=== PATIENT | male | born 1980 | race Caucasian/White ===

== ENCOUNTER 2019-02-19 11:51 | Emergency (ER) | payer OTHER ==
[~2019-02-19] VITALS: Ht 160 cm; Wt 90.7 kg
[2019-02-19 11:55] VITALS: BP_SYST 152
--- NOTE | 2019-02-19 11:57 | NUR ---
Patient to ER bed 07 to gown for evaluation. Side rails up.
--- NOTE | 2019-02-19 12:04 | NUR ---
Patient arrived via POV, AAOx4, and ambulatory with steady gait. Patient able to sit and stand for short periods of time. Patient c/c of lumbar spine pain. 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 States while moving gurney he was twisting, leaning, and pulling. States he had tingling to his legs, which has since resolved. Pain is sharp to lumbar. Patient has history of L3, L4, L5 bulging disk and he is concerned he may have furthered his injury. Patient states he was able to do a double shift yesterday but pain worsens with prolonged sitting or standing. Patient states OTC ibuprofen was taken with no relief. While having back pain with previous injury he took tramadol and norco. No heat or ice was applied. Will continue to follow up and monitor.
--- NOTE | 2019-02-19 12:07 | NUR ---
ER at bedside examining patient.
[2019-02-19] MEDS ORDERED: KETOROLAC TROMETHAMINE 60 MG/2 ML VIAL IM ONE (12:15)
--- NOTE | 2019-02-19 12:20 | NUR ---
Patient given written and verbal discharge instructions and verbalizes understanding. ER MD discussed with patient the results and treatment provided. Patient in stable condition. ID arm band removed. Rx of Robaxin, Motrin, and [place] given. Patient educated on pain management and to follow up with PMD. Pain Scale 7/10, pain is decreasing after toradol injection, requesting to leave, tolerable per patient. Opportunity for questions provided and answered. Medication side effect fact sheet provided.
--- NOTE | 2019-02-19 12:39 | NUR ---
Medication reconciliation completed with information provided by [facility]. Any prior medication reconciliation on file was reviewed and corrected.
== END 2019-02-19 12:20 | disposition home or self-care (01) ==
LOC: SED 11:51
DX: M51.36 Other intervertebral disc degeneration, lumbar region (principal); I10 Essential (primary) hypertension
CPT/HCPCS: 96372; 99283; J1885